=== PATIENT | female | born 1945 | race Hispanic/Latino ===

== ENCOUNTER 2017-06-27 00:42 | Day surgery (SDC) | payer MEDICARE ==
[2017-06-27] MEDS ORDERED: TORADOL IV ONE (01:23)
[2017-06-27] MEDS ORDERED: ZOFRAN IV ONE ×2 (01:23→10:04)
[2017-06-27] MEDS ORDERED: NACL 0.9% 1000 ML 1,000 ML IV ONE (01:52)
[2017-06-27] MEDS ORDERED: DILAUDID IV PRN ×2 (01:52→09:30)
[2017-06-27] MEDS ORDERED: DILAUDID IV ONE ×2 (01:52→03:37)
[2017-06-27 02:24] LABS: Anion Gap 22 mmol/L; BUN/Creatinine Ratio 26; Blood Urea Nitrogen 23 mg/dL (7-17); Calcium 10.2 mg/dL (8.4-10.2); Carbon Dioxide 19 mmol/L (22-30); Chloride 96.9 mmol/L (98-107); Glucose 111 mg/dL (65-100); Potassium 3.8 mmol/L (3.6-5.0); Sodium 134 mmol/L (137-145)
[2017-06-27 02:27] LABS: Basophils % (Auto) 0.3 % (0.0-1.8); Eosinophils % (Auto) 0.4 % (0.0-4.3); Hematocrit 41.6 % (30.3-42.9); Hemoglobin 14.3 gm/dl (10.1-14.3); Mean Corpuscular HGB Conc 34 % (30-34); Mean Corpuscular Hemoglobin 30 pg (28-32); Mean Corpuscular Volume 87 fl (79-97); Platelet Count 280 K/mm3 (140-440); Red Cell Distribution Width 14.3 % (13.2-15.2); White Blood Count 14.7 K/mm3 (4.5-11.0)
[2017-06-27] MEDS ORDERED: ROCEPHIN/NS 1 GM/50 ML 1 GM/50 ML BAG IV ONE (02:48)
[2017-06-27 02:58] LABS: Bilirubin,Urine NEG (Negative); Blood,Urine LG (Negative); Ketones,Urine 20 mg/dL (Negative); Leukocyte Esterase,Urine SM (Negative); Nitrite,Urine NEG (Negative); Protein,Urine <15 mg/dL mg/dL (Negative); Urobilinogen,Urine < 2.0 mg/dL (<2.0)
[2017-06-27] MEDS ORDERED: cefTRIAXone 1 GM in NACL 0.9% 20 ML IV ONE (03:00)
--- NOTE | 2017-06-27 03:13 | Emergency Department Report ---
ED Abdominal Pain HPI - General Chief Complaint: Urogenital-Female Stated Complaint: KIDNEY STONES Time Seen by Provider: 06/27/17 02:37 Source: patient, family Mode of arrival: Ambulatory Limitations: No Limitations - History of Present Illness Initial Comments: 71-year-old female with a past medical history of hypertension presents to the hospital complaints of right flank pain times several days. Patient was seen and evaluated here on June 25 by ER physician and diagnosed with a right kidney stone. Patient was sent home on Toradol, Levaquin, Phenergan, Flomax, and Percocet. Despite taking these medications pain worsened today with continued nausea. No vomiting but decreased by mouth intake. MAXIMUM TEMPERATURE reported at 100.3.. Patient denies previous history of stones prior to this episode. Pain is constant and fluctuates in intensity rated at 9/ 10 in intensity. Worse with palpation and movement. Severity scale (0 -10): 10 - Related Data Previous Rx's Medication Instructions Recorded Last Taken Type Ketorolac [Toradol] 10 mg PO Q6H PRN #16 tablet 06/25/17 Unknown Rx Levofloxacin [Levaquin TAB] 500 mg PO QDAY #7 tablet 06/25/17 Unknown Rx Promethazine [Phenergan TAB] 25 mg PO Q6HR PRN #20 tab 06/25/17 Unknown Rx Tamsulosin [Flomax] 0.4 mg PO QDAY #5 cap 06/25/17 Unknown Rx oxyCODONE /ACETAMINOPHEN [Percocet 1 - 2 tab PO Q6HR PRN #20 tablet 06/25/17 Unknown Rx 5/325] Allergies Allergy/AdvReac Type Severity Reaction Status Date / Time No Known Allergies Allergy Verified 06/25/17 02:31 ED Review of Systems ROS: Stated complaint: KIDNEY STONES Other details as noted in HPI Comment: All other systems reviewed and negative Other: Constitutional: as per hpi Eyes: No eye pain visual changes ENT: No ear pain or throat pain Neck: Denies pain Respiratory: Denies cough wheezing shortness of breath Cardiovascular: Denies chest pain, palpitations, syncope GI: as per hpi : Denies dysuria Musculoskeletal: Denies back pain Skin: Denies rash, lesions, erythema Neurologic: Denies headache, numbness, weakness Psychiatric: Denies suicidal ideation, hallucinations ED Past Medical Hx - Past Medical History Previous Medical History?: Yes Hx Hypertension: Yes Additional medical history: kidney stones - Surgical History Past Surgical History?: Yes Additional Surgical History: Hip surgery - Social History Smoking Status: Current Every Day Smoker Substance Use Type: None - Medications Home Medications: Home Medications Medication Instructions Recorded Confirmed Last Taken Type Ketorolac [Toradol] 10 mg PO Q6H PRN #16 tablet 06/25/17 Unknown Rx Levofloxacin [Levaquin TAB] 500 mg PO QDAY #7 tablet 06/25/17 Unknown Rx Promethazine [Phenergan TAB] 25 mg PO Q6HR PRN #20 tab 06/25/17 Unknown Rx Tamsulosin [Flomax] 0.4 mg PO QDAY #5 cap 06/25/17 Unknown Rx oxyCODONE /ACETAMINOPHEN [Percocet 1 - 2 tab PO Q6HR PRN #20 tablet 06/25/17 Unknown Rx 5/325] ED Physical Exam - General Limitations: No Limitations - Other Other exam information: General: Moderate distress secondary to pain Head exam: Atraumatic, normocephalic Eyes exam: Normal appearance, ENT: Moist mucous membrane, normal oropharynx Neck exam: Normal inspection, full range of motion, no meningismus nontender Respiratory exam: Clear to auscultation bilateral, no wheezes, rales, crackles Cardiovascular: Normal rate and rhythm, normal heart sounds Abdomen: Soft, nondistended, right flank and right lower abdominal tenderness to palpation. Normal bowel sounds. No rebound or guarding Extremity: Full range of motion normal inspection no deformity Back: Normal Inspection, full range of motion, no tenderness Neurologic: Alert, oriented x3, cranial nerves intact, no motor or sensory deficit Psychiatric: normal affect, normal mood Skin: Warm, dry, intact ED Course Vital Signs 06/27/17 06/27/17 06/27/17 01:20 02:18 03:00 Temperature 99.4 F 98.7 F Pulse Rate 112 H 82 74 Respiratory 17 14 11 L Rate Blood Pressure 156/90 170/88 Blood Pressure 163/92 [Left] O2 Sat by Pulse 99 97 97 Oximetry - Reevaluation(s) Reevaluation #1: 06/27/17 03:22 Patient treated with Toradol, Zofran, Dilaudid, and normal saline in the ED with improvement in pain - Consultations Consultation #1: 06/27/17 03:21 case d/w Dr. Carrasco urology, agrees to to consult on pt, rec NPO ED Medical Decision Making - Lab Data Result diagrams: 06/27/17 01:42 06/27/17 01:42 Lab Results 06/27/17 06/27/17 06/27/17 Range/Units 01:42 01:42 02:30 WBC 14.7 H (4.5-11.0) K/mm3 RBC 4.80 (3.65-5.03) M/mm3 Hgb 14.3 (10.1-14.3) gm/dl Hct 41.6 (30.3-42.9) % MCV 87 (79-97) fl MCH 30 (28-32) pg MCHC 34 (30-34) % RDW 14.3 (13.2-15.2) % Plt Count 280 (140-440) K/mm3 Lymph % (Auto) 14.4 (13.4-35.0) % [place] % (Auto) 9.7 H (0.0-7.3) % Eos % (Auto) 0.4 (0.0-4.3) % Baso % (Auto) 0.3 (0.0-1.8) % Lymph # 2.1 (1.2-5.4) K/mm3 [place] # 1.4 H (0.0-0.8) K/mm3 Eos # 0.1 (0.0-0.4) K/mm3 Baso # 0.0 (0.0-0.1) K/mm3 Seg Neutrophils % 75.2 H (40.0-70.0) % Seg Neutrophils # 11.0 H (1.8-7.7) K/mm3 Sodium 134 L (137-145) mmol/L Potassium 3.8 (3.6-5.0) mmol/L Chloride 96.9 L (98-107) mmol/L Carbon Dioxide 19 L (22-30) mmol/L Anion Gap 22 mmol/L BUN 23 H (7-17) mg/dL Creatinine 0.9 (0.7-1.2) mg/dL Estimated GFR > 60 ml/min BUN/Creatinine Ratio 26 % Glucose 111 H (65-100) mg/dL Calcium 10.2 (8.4-10.2) mg/dL Urine Color Yellow (Yellow) Urine Turbidity Clear (Clear) Urine pH 6.0 (5.0-7.0) Ur Specific [place] 1.015 (1.003-1.030) Urine Protein <15 mg/dl (Negative) mg/dL Urine Glucose (UA) Neg (Negative) mg/dL Urine Ketones 20 (Negative) mg/dL Urine Blood Lg (Negative) Urine Nitrite Neg (Negative) Urine Bilirubin Neg (Negative) Urine Urobilinogen < 2.0 (<2.0) mg/dL Ur Leukocyte Esterase Sm (Negative) Urine WBC (Auto) 8.0 H (0.0-6.0) /HPF Urine RBC (Auto) 128.0 (0.0-6.0) /HPF U Epithel Cells (Auto) 6.0 (0-13.0) /HPF - Radiology Data Radiology results: report reviewed CT abdomen and pelvis noncontrast,: stable moderate to severe right-sided hydronephrosis with a position of the stone in the distal right ureter unchanged. Stone measures 4.7 mm in the axial dimension 6.3 mm in the cephalocaudal dimmension - Medical Decision Making Leukocytosis is trending downward. She now has signs of dehydration compared to yesterday. Creatinine stable Patient failed outpatient treatment. Stone is unlikely to pass spontaneously. Case discussed with urology made 3 to evaluate patient for admission. Rocephin given in the ED addition to pain, nausea medicine and fluids - Differential Diagnosis renal colic, UTI, obstructive uropathy Critical Care Time: No Critical care attestation.: If time is entered above; I have spent that time in minutes in the direct care of this critically ill patient, excluding procedure time. ED Disposition Clinical Impression: Renal colic on right side, Obstructed, uropathy, Intractable pain, Leukocytosis , UTI (urinary tract infection) Disposition: OP ADMIT IP TO THIS HOSP Is pt being admited?: Yes Condition: Stable Time of Disposition: 03:20 (Dr Conway/hosp)
--- NOTE | 2017-06-27 09:18 | Consultation ---
History of Present Illness - Reason for Consult Consult date: 06/27/17 - History of Present Illness CC - rt distal stone 71-year-old female with a past medical history of hypertension presents to the hospital complaints of right flank pain times several days. Patient was seen and evaluated here on June 25 by ER physician and diagnosed with a right kidney stone. Patient was sent home on Toradol, Levaquin, Phenergan, Flomax, and Percocet. Despite taking these medications pain worsened today with continued nausea. No vomiting but decreased by mouth intake. MAXIMUM TEMPERATURE reported at 100.3.. Patient denies previous history of stones prior to this episode. Pain is constant and fluctuates in intensity rated at 9/ 10 in intensity. Worse with palpation and movement. present CT - 5mm rt distal stone A/P RT distal stone with colic need ureteroscopy NPO Medications and Allergies Allergies Allergy/AdvReac Type Severity Reaction Status Date / Time No Known Allergies Allergy Verified 06/25/17 02:31 Home Medications Medication Instructions Recorded Confirmed Last Taken Type Ketorolac [Toradol] 10 mg PO Q6H PRN #16 tablet 06/25/17 06/27/17 Unknown Rx Levofloxacin [Levaquin TAB] 500 mg PO QDAY #7 tablet 06/25/17 06/27/17 Unknown Rx Promethazine [Phenergan TAB] 25 mg PO Q6HR PRN #20 tab 06/25/17 06/27/17 Unknown Rx Tamsulosin [Flomax] 0.4 mg PO QDAY #5 cap 06/25/17 06/27/17 Unknown Rx Atenolol [Tenormin] 25 mg PO DAILY 06/27/17 06/27/17 Unknown History Duloxetine HCl [DULoxetine] 60 mg PO DAILY 06/27/17 06/27/17 Unknown History Gabapentin [Neurontin] 800 mg PO BID 06/27/17 06/27/17 Unknown History Tizanidine HCl [Zanaflex] 4 mg PO DAILY 06/27/17 06/27/17 Unknown History Exam - Constitutional Vitals: Temp Pulse Resp BP Pulse Ox 98.7 F 100 H 14 144/88 92 06/27/17 02:18 06/27/17 07:00 06/27/17 07:29 06/27/17 07:00 06/27/17 07:00 Results - Labs CBC & Chem 7: 06/27/17 01:42 06/27/17 01:42 Labs: Abnormal lab results 06/27/17 06/27/17 06/27/17 Range/Units 01:42 01:42 02:30 WBC 14.7 H (4.5-11.0) K/mm3 [place] % (Auto) 9.7 H (0.0-7.3) % [place] # 1.4 H (0.0-0.8) K/mm3 Seg Neutrophils % 75.2 H (40.0-70.0) % Seg Neutrophils # 11.0 H (1.8-7.7) K/mm3 Sodium 134 L (137-145) mmol/L Chloride 96.9 L (98-107) mmol/L Carbon Dioxide 19 L (22-30) mmol/L BUN 23 H (7-17) mg/dL Glucose 111 H (65-100) mg/dL Urine WBC (Auto) 8.0 H (0.0-6.0) /HPF
[2017-06-27] MEDS ORDERED: DILAUDID ONE ×2 (09:37→12:07)
--- NOTE | 2017-06-27 11:11 | Anesthesia Consultation ---
Anesthesia Consult and Med Hx Date of service: 06/27/17 - Airway Anesthetic Teeth Evaluation: Good, Chipped (top left molar) ROM Head & Neck: Adequate Mental/Hyoid Distance: Adequate Mallampati Class: Class II Intubation Access Assessment: Probably Good - Pulmonary Exam CTA: Yes - Cardiac Exam Cardiac Exam: RRR - Pre-Operative Health Status ASA Pre-Surgery Classification: ASA2 Proposed Anesthetic Plan: General - Pulmonary Hx Smoking: No Hx Asthma: No Hx Sleep Apnea: No - Cardiovascular System Hx Hypertension: Yes - Central Nervous System Hx Neuromuscular Disorder: Yes (fibromyalgia, chronic pain) Hx Seizures: No CVA: No Hx Psychiatric Problems: Yes - Endocrine Hx Renal Disease: No (stones) Hx Thyroid Disease: Yes Hx Hypothyroidism: Yes
--- NOTE | 2017-06-27 11:11 | Anesthesia Day of Surgery ---
Anesthesia Day of Surgery - Day of Surgery Patient Examined: Yes Patient H&P Reviewed: Yes Patient is NPO: No (water at 10 am)
[2017-06-27] MEDS ORDERED: TRANSDERM-SCOP TD NR (12:00)
[2017-06-27] MEDS ORDERED: NACL 0.9% 1000 ML 1,000 ML IV SCH (12:00)
[2017-06-27] MEDS ORDERED: REGLAN IV NR (12:00)
[2017-06-27] MEDS ORDERED: VERSED IV NR (12:00)
[2017-06-27] MEDS ORDERED: PEPCID IV NR (12:00)
[2017-06-27] MEDS ORDERED: DIPRIVAN 10 MG/ML IV ONE (12:07)
[2017-06-27] MEDS ORDERED: XYLOCAINE MPF 2% ONE (12:10)
[2017-06-27] MEDS ORDERED: ZOFRAN ONE (12:32)
[2017-06-27] MEDS ORDERED: DECADRON ONE (12:32)
[2017-06-27] MEDS ORDERED: WATER FOR IRRIG STERILE IR ONE (12:39)
[2017-06-27] MEDS ORDERED: ANCEF ONE (12:40)
[2017-06-27] MEDS ORDERED: OMNIPAQUE (300 MG) IR ONE (12:42)
--- NOTE | 2017-06-27 13:08 | Short Stay Summary ---
Short Stay Documentation Date of service: 06/27/17 - History H&P: dictated - Allergies and Medications Current Medications: Allergies No Known Allergies Allergy (Verified 06/25/17 02:31) Home Medications Medication Instructions Recorded Confirmed Last Taken Type Ketorolac [Toradol] 10 mg PO Q6H PRN #16 tablet 06/25/17 06/27/17 06/26/17 Rx Levofloxacin [Levaquin TAB] 500 mg PO QDAY #7 tablet 06/25/17 06/27/17 06/26/17 Rx Promethazine [Phenergan TAB] 25 mg PO Q6HR PRN #20 tab 06/25/17 06/27/17 Rx Tamsulosin [Flomax] 0.4 mg PO QDAY #5 cap 06/25/17 06/27/17 06/26/17 Rx Atenolol [Tenormin] 25 mg PO DAILY 06/27/17 06/27/17 06/23/17 History Duloxetine HCl [DULoxetine] 60 mg PO DAILY 06/27/17 06/27/17 06/23/17 History Gabapentin [Neurontin] 800 mg PO BID 06/27/17 06/27/17 06/23/17 History Tizanidine HCl [Zanaflex] 4 mg PO DAILY 06/27/17 06/27/17 06/23/17 History Active Medications Famotidine (Pepcid) 20 mg IV PREOP NR Stop: 06/27/17 23:59 Last Admin: 06/27/17 11:55 Dose: 20 mg Hydromorphone HCl (Dilaudid) 2 mg IV Q3H PRN PRN Reason: Analgesia Last Admin: 06/27/17 10:13 Dose: 2 mg Sodium Chloride (Nacl 0.9% 1000 Ml) 1,000 mls @ 75 mls/hr IV DIRECT CHANTE Last Admin: 06/27/17 11:50 Dose: 75 mls/hr Metoclopramide HCl (Reglan) 10 mg IV PREOP NR Stop: 06/27/17 23:59 Last Admin: 06/27/17 11:50 Dose: 10 mg Midazolam HCl (Versed) 2 mg IV PREOP NR Stop: 06/27/17 23:59 Last Admin: 06/27/17 11:48 Dose: 2 mg Scopolamine (Transderm-Scop) 1 each TD PREOP NR Stop: 06/30/17 11:59 Last Admin: 06/27/17 11:51 Dose: 1 each - Brief post op/procedure progress note Date of procedure: 06/27/17 Pre-op diagnosis: rt distal stone Post-op diagnosis: same Procedure: cysto, basket rt stone stent with string Anesthesia: CHASE Surgeon: IVETH FUENTES Estimated blood loss: none Condition: stable - Hospital course Hospital course: norco, cipro & post op info on chart ok to go home - Disposition Disposition: DC-01 TO HOME OR SELFCARE Short Stay Discharge Plan Follow up with: PRIMARY CARE, [Primary Care Provider] - 7 Days
[2017-06-27] MEDS ORDERED: NORCO 5/325 PO PRN (13:25)
[2017-06-27 13:51] VITALS: BP 128/70
--- NOTE | 2017-06-27 13:52 | Post Anesthesia Evaluation ---
- Post Anesthesia Evaluation Patient Participated: Yes Airway Patent: Yes Stable Respiratory Function: Yes Temp > 96.8F: Yes Pain Manageable: Yes Adequeate Hydration: Yes Anesthesia Complications: No
--- NOTE | 2017-06-27 15:03 | Fluoroscopy Report ---
Retrograde urography. History: Right ureteral stone. Findings: The left pelvicalyceal system and ureter are normal. A filling defect/stone is seen in the distal right ureter. The stone was extracted at ureteroscopy. A double-J ureteral stent is demonstrated in satisfactory position on the final images.
--- NOTE | 2017-06-27 19:28 | Operative Report ---
PREOPERATIVE DIAGNOSIS: Right distal ureteral stone, 5 mm. POSTOPERATIVE DIAGNOSIS: Right distal ureteral stone, 5 mm. PROCEDURES PERFORMED: Cystoscopy, bilateral retrograde pyelograms, right dilatation of ureter with Access sheath, right ureteroscopy, basket stone extraction with double-J stent (6 [place] 24 cm with an external string). SURGEON: Irineo Carrasco MD ANESTHESIA: General. ESTIMATED BLOOD LOSS: Minimal. FLUIDS: Crystalloid. COMPLICATIONS: No complications. INDICATIONS: This patient is a 71-year-old female who presented to the Emergency Room for the second time with right flank pain. CT of abdomen and pelvis confirmed a distal 5 mm stone and significant pain due to those findings. We were asked to see the patient. She was in significant pain. She was n.p.o. We discussed the options to proceed with surgical intervention. DESCRIPTION OF PROCEDURE: The patient was taken to the operative suite, placed in a supine position. After adequate general anesthesia, she was placed in a dorsal lithotomy position, prepped and draped in a sterile fashion. MODERATE CYSTOCELE noted and normal tight now. Several Ray-Kike were placed in the vagina to correct the cystocele and cystoscopy was performed. In the bladder, no tumors or stones could be appreciated. Both ureteral orifices in normal position. Bilateral retrograde pyelograms were obtained with an 8-[place] Reggie catheter and 8 mL of contrast. No filling defects or obstruction on the left. Right side, obvious stone in the distal ureter. A two 0.035 Glidewires were placed. The distal ureter appeared somewhat narrow. An 18-[place] access sheath was placed over one of the wires for gentle dilation, it was removed. The rigid ureteroscopy was performed. The stone was engaged with a 3-[place] Shu basket and extracted without difficulty. A 6-[place] 24 cm double-J stent with external string was left indwelling confirmed under fluoroscopy. The patient tolerated the procedure well. She was extubated and taken to recovery room. She will go home on [facility] [place] and follow up in the office. JOB# [id number] [facility]
== END 2017-06-27 16:06 | disposition home or self-care (01) ==
LOC: ED 00:42 → OR 11:28
PROVIDERS: ATTEND Urology
DX: N13.2 Hydronephrosis with renal and ureteral calculous obstruction (principal); N13.5 Crossing vessel and stricture of ureter without hydronephrosis; N81.10 Cystocele, unspecified; I10 Essential (primary) hypertension; E03.9 Hypothyroidism, unspecified; M79.7 Fibromyalgia; G89.29 Other chronic pain
CPT/HCPCS: 36415; 52332; 52352; 74420; 80048; 81001; 85025; A4217; J0690; J0696; J1100; J1170; J1885; J2250; J2405; J2704; J2765; J7030; Q9967; C1726; C1758; C1769; C2617